=== PATIENT | female | born 1975 | race Caucasian/White ===

== ENCOUNTER 2016-10-10 08:52 | Day surgery (SDC) | payer OTHER ==
[~2016-10-10] VITALS: Ht 165.1 cm; Wt 72.6 kg
[~2016-10-10 08:52] MED LIST: LEXA1TAB PO
[2016-10-10] MEDS ORDERED: LR 1,000 ML IV SCH ×2 (09:15→16:00)
[2016-10-10 09:25] LABS: MEAN CORPUSCULAR HEMOGLOBIN 31.1 pg (27.0-33.0); MEAN CORPUSCULAR HGB CONC 34.5 g/dl (32.0-36.5); MEAN CORPUSCULAR VOLUME 90.2 fl (80.0-96.0); RED CELL DISTRIBUTION WIDTH 11.7 % (11.5-14.5); WHITE BLOOD COUNT 8.6 K/mm3 (4.0-10.0)
[2016-10-10 10:20] LABS: CONTROL LINE UCG INT CTR LINE PRESENT
[2016-10-10] MEDS ORDERED: PROPOFOL 500 MG/50 ML VIAL As Ordered ONE (13:38)
[2016-10-10] MEDS ORDERED: fentaNYL 100 MCG/2 ML INJECTION (J3010) As Ordered ONE ×3 (13:38→15:26)
[2016-10-10] MEDS ORDERED: GLYCOPYRROLATE INJ 0.2 MG/ML 2 ML VIAL As Ordered ONE ×2 (13:38→14:05)
[2016-10-10] MEDS ORDERED: NEOSTIGMINE 1MG/ML 5 ML SYRINGE (J2710) As Ordered ONE (13:38)
[2016-10-10] MEDS ORDERED: MIDAZOLAM INJ 2 MG/2 ML VIAL (J2250) As Ordered ONE (13:38)
[2016-10-10] MEDS ORDERED: dexameTHASONE 4 MG/ML 1ML VIAL (J1100) As Ordered ONE (13:38)
[2016-10-10] MEDS ORDERED: ROCURONIUM BROMIDE 50 MG/5 ML VIAL As Ordered ONE (13:38)
[2016-10-10] MEDS ORDERED: LIDOCAINE 2% INJ 100 MG/5 ML SDV (FOR ANES.) As Ordered ONE (13:39)
[2016-10-10] MEDS ORDERED: KETOROLAC 60 MG/2 ML VIAL (J1885) As Ordered ONE (13:41)
[2016-10-10] MEDS ORDERED: ONDANSETRON 4MG/2ML VIAL (J2405) As Ordered ONE (13:41)
[2016-10-10] MEDS ORDERED: ePHEDrine SULFATE 25 MG/5 ML(5MG/ML) SYRINGE As Ordered ONE (14:01)
[2016-10-10] MEDS ORDERED: PROPOFOL 200 MG/20 ML VIAL As Ordered ONE (14:50)
[2016-10-10] MEDS: fentaNYL 100 MCG/2 ML INJECTION (J3010) IV PRN ×4 (15:30→15:45)
[2016-10-10] MEDS ORDERED: MORPHINE PCA 1MG/ML 100ML CADD As Ordered ONE (15:31)
[2016-10-10] MEDS ORDERED: HYDROmorphone HCL 1 MG/ML SYRINGE (J1170) As Ordered ONE (15:57)
[2016-10-10] MEDS: HYDROmorphone HCL 1 MG/ML SYRINGE (J1170) IV PRN ×3 (16:00→16:20)
[2016-10-10] MEDS ORDERED: diphenhydrAMINE INJ 50MG/ML VIAL (J1200) IV PRN (16:00)
[2016-10-10] MEDS ORDERED: MORPHINE PCA 1MG/ML 100ML CADD IV PRN (16:00)
[2016-10-10] MEDS ORDERED: PERCOCET 5MG/325MG TAB PO PRN (16:00)
[2016-10-10] MEDS ORDERED: EPIDURAL/PCA KEYS XX PRN (16:00)
[2016-10-10] MEDS ORDERED: NALOXONE INJ 0.4 MG/1 ML VIAL (J2310) IV PRN (16:00)
[2016-10-10] MEDS ORDERED: ONDANSETRON 4MG/2ML VIAL (J2405) IV PRN (16:00)
[2016-10-10] MEDS ORDERED: NALBUPHINE HCL 10 MG/ML AMP (J2300) IV PRN (16:00)
[2016-10-10] MEDS: LR 1,000 ML IV SCH ×2 (16:15→21:24)
[2016-10-10 16:35] VITALS: BP 127/62
[2016-10-10 17:00] VITALS: BP 142/63
[2016-10-10 18:00] VITALS: BP 130/86
[2016-10-10 19:00] VITALS: BP 130/76
[2016-10-10 20:00] VITALS: BP 127/66
[2016-10-10 21:00] VITALS: BP 129/74
[2016-10-10] MEDS ORDERED: IBUPROFEN 600 MG TAB PO PRN (22:00)
[2016-10-11] VITALS: BP 127/58
[2016-10-11 04:00] VITALS: BP 115/72
[2016-10-11] MEDS ORDERED: NORCO, ANEXSIA 5/325MG TABLET (HYDROcodone/ACETAMINOPHEN) PO PRN (06:00)
[2016-10-11 07:25] LABS: MEAN CORPUSCULAR HEMOGLOBIN 30.2 pg (27.0-33.0); MEAN CORPUSCULAR HGB CONC 32.8 g/dl (32.0-36.5); RED CELL DISTRIBUTION WIDTH 12.6 % (11.5-14.5); WHITE BLOOD COUNT 13.6 K/mm3 (4.0-10.0)
[2016-10-11 08:00] VITALS: BP 144/69
--- NOTE | 2016-10-11 08:36 | RO ---
DATE OF PROCEDURE: 10/10/2016 PREOPERATIVE DIAGNOSIS: Bleeding and pain, desire for removal of intrauterine device (IUD). POSTOPERATIVE DIAGNOSIS: Bleeding and pain, desire for removal of intrauterine device (IUD). PROCEDURE: Total vaginal hysterectomy with bilateral salpingectomy and removal of IUD. SURGEON: Dr. Carmelita Rosales [employer] COUNTER FEEDER: Latia Kwong ANESTHESIA: General endotracheal anesthesia. BRIEF DESCRIPTION OF PROCEDURE AND FINDINGS: Gabby was brought to the operating room where sufficient general endotracheal anesthesia was induced and she was prepped, draped and positioned in the usual sterile fashion with the weight speculum placed, the bladder emptied, and the anterior and posterior aspects of the cervix grasped with single tooth tenacula. Circumferential incision was made around the base of the cervix. In fact, the IUD was removed after the single tooth tenacula were placed and then a circumferential incision was made around the base of the cervix after the IUD and string had been removed out of the way. The cardinal ligaments were isolated, clamped, transected, and ligated with #0 Vicryl suture, which was used throughout the case. The uterosacrals were then isolated, clamped, transected and ligated and labeled for later reattachment. The peritoneal reflection posteriorly opened. The dissection was then continued anteriorly to free up the bladder flap and the uterine vasculature was carefully clamped, transected and ligated in sequential fashion along the lateral aspect of the uterus until the level of the utero-ovarian ligaments was reached. This too was clamped, transected and ligated, as were the round ligaments. Then the fallopian tubes were carefully brought down and the pedicles carefully clamped, transected and ligated and the uterus with the attached fallopian tubes was removed. Both left and right fallopian tubes were removed. The patient retains her ovaries as was her wish. The pedicles were carefully evaluated with sponge on a stick and retractors and good hemostasis was confirmed. Angle stitches of #0 Vicryl were placed. The uterosacrals were reincorporated into the cuff and the cuff closed with a #0 Vicryl in a running locked stitch with good approximation and hemostasis and support achieved. The procedure was then ended. Estimated blood loss for the procedure was about 50 mL. Fluid replacement was crystalloid. Complications: None. Condition and Disposition: Gabby tolerated the procedure well and was recovering in the recovery room in good condition.
[2016-10-11] MEDS ORDERED: NORC5TAB PO (08:49)
[2016-10-11] MEDS ORDERED: MOTR200T44 PO (08:49)
[2016-10-11] MEDS ORDERED: ESCITALOPRAM OXALATE 10 MG TAB (LEXAPRO) PO SCH (09:00)
== END 2016-10-11 09:05 | disposition home or self-care (01) ==
LOC: M SDC 08:52 → M PED 16:38 → M SDC 10-11 09:05
PROVIDERS: ATTEND Obstetrics & Gynecology
DX: N92.0 Excessive and frequent menstruation with regular cycle (principal); F41.9 Anxiety disorder, unspecified; F32.9 Major depressive disorder, single episode, unspecified; F17.290 Nicotine dependence, other tobacco product, uncomplicated; Z79.899 Other long term (current) drug therapy
CPT/HCPCS: 36415; 58262; 84703; 85027; 86850; 86900; 86901; 88309; 96374; 96375; J0690; J1100; J1170; J1885; J2250; J2405; J2710; J3010

== ENCOUNTER → 2019-03-19 | Outpatient (CLI) | payer OTHER ==
[~2019-03-19] MED LIST changes: +MOTR200T44 PO; +NORC1TAB7 PO; +PROHANCE 279.3MG/ML 15ML VIAL (A9576) As Ordered ONE
--- NOTE | 2019-03-19 12:29 | REP ---
Bilateral breast MRI study without and with IV gadolinium: History: Dense tissue on mammography. High-risk patient breast cancer screening study. No comparison imaging available. Technique: 3 Roselia MRI imaging was performed with a dedicated breast coil. Axial, coronal, and sagittal T1 and T2-weighted scans were obtained with and without fat saturation in the usual fashion. The study includes dynamically acquired post gadolinium enhanced imaging subtraction imaging. Maximal intensity projection and multiplanar re-formation imaging is included as well. The study was interpreted with the aid of Melon #usemelon, an FDA approved computer-aided detection (CAD) software program, on a dedicated breast MRI work station. The gadolinium enhancement dose is 15 mL of intravenous ProHance. Findings: There are extensive fibroglandular elements bilaterally and symmetrically throughout the breast parenchyma. There is no evidence of axillary lymphadenopathy on either side. No significant breast cystic changes are noted. High-resolution pre and postcontrast enhanced MR images show no suspicious morphologic abnormality on either side. Dynamically acquired sequential post gadolinium enhanced images show no suspicious focus of enhancement and/or washout to suggest malignancy. Subtraction images are unremarkable. There is a mild pattern of background parenchymal enhancement. Impression: BI-RADS category 1 negative breast MRI findings. Patient's whose breast cancer lifetime risk assessment is greater than 20% merit enhanced screening with annual screening MRI study, preferably alternating every 6 months with annual screening mammography. Electronically Signed by Man Craft MD 03/19/2019 01:07 P
== END ==
LOC: M RAD 08:32
PROVIDERS: ATTEND Physician Assistant
DX: Z12.31 Encounter for screening mammogram for malignant neoplasm of breast (principal); Z80.3 Family history of malignant neoplasm of breast
CPT/HCPCS: A9576; C8908

== ENCOUNTER → 2019-07-30 | Outpatient (CLI) | payer OTHER ==
[~2019-07-30] MED LIST changes: -PROHANCE 279.3MG/ML 15ML VIAL (A9576) As Ordered ONE
--- NOTE | 2019-07-30 13:51 | REP ---
MRI RIGHT FOOT WITHOUT CONTRAST: HISTORY: Cuboid syndrome. Peroneal tendonitis right lower extremity. TECHNIQUE: Axial, coronal and sagittal imaging planes utilized. T1- and T2-weighted scans were obtained in the usual fashion with and without fat saturation. 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 There is hyperintensity of the overlying articular cartilage. There is mild reactive spurring suggesting chronicity. No evidence of loose body or significant joint effusion is seen. There is a small zone of marrow edema at the plantar insertion site on the inferior posterior calcaneus. Plantar fascia are smooth. Findings may reflect mild plantar fasciitis. Cortical and medullary bone signal intensity are otherwise normal in the tarsal, metatarsal, and phalangeal bones. Cuboid bone is unremarkable. No evidence of tarsal coalition is seen. Achilles tendon is unremarkable as seen. No ankle ligament disruption is appreciated. No evidence of peroneal or other flexor tendon disruption. No juxta-articular cyst or mass is seen. IMPRESSION: 1. There is evidence of mild plantar fasciitis. 2. 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 Electronically Signed by Man Craft MD 07/30/2019 01:57 P
== END ==
LOC: M PLARAD 10:19
PROVIDERS: ATTEND Orthopaedic Surgery
DX: M89.9 Disorder of bone, unspecified (principal); S93.31 Subluxation and dislocation of tarsal joint; M76.71 Peroneal tendinitis, right leg

== ENCOUNTER → 2020-11-09 | Outpatient (REF) | payer OTHER | LOC: M LAB REF 15:21 | PROVIDERS: ATTEND Physician Assistant | DX: D23.39 Other benign neoplasm of skin of other parts of face (principal) ==

== ENCOUNTER → 2023-01-20 | Outpatient (CLI) | payer OTHER | LOC: M WHC 08:20 | PROVIDERS: ATTEND Family Medicine | DX: Z12.31 Encounter for screening mammogram for malignant neoplasm of breast (principal) ==

== ENCOUNTER 2023-03-13 07:51 | Day surgery (SDC) | payer OTHER ==
[~2023-03-13] VITALS: Ht 165.1 cm; Wt 76.6 kg
[~2023-03-13 07:51] MED LIST changes: +ALPR0.25 PO; +FLUO20CA22 PO; +FLUO40CA PO; +NS 1,000 ML IV ONE
[2023-03-13 09:05] VITALS: TEMP 98.4
[2023-03-13] MEDS ORDERED: propofoL 500 MG/50 ML VIAL As Ordered ONE (09:12)
[2023-03-13] MEDS ORDERED: LIDOCAINE 2% 100MG/5ML SDV (FOR ANES.) As Ordered ONE (09:12)
[2023-03-13 09:19] VITALS: BP 107/66; O2SAT 100
== END 2023-03-13 09:21 | disposition home or self-care (01) ==
LOC: M OPP 07:51
PROVIDERS: ATTEND Surgery
DX: Z12.11 Encounter for screening for malignant neoplasm of colon (principal); F17.200 Nicotine dependence, unspecified, uncomplicated; Z79.1 Long term (current) use of non-steroidal anti-inflammatories (NSAID); Z79.899 Other long term (current) drug therapy

== ENCOUNTER → 2023-10-10 | Outpatient (CLI) | payer OTHER ==
[~2023-10-10] MED LIST changes: -NS 1,000 ML IV ONE; +PROHANCE 279.3MG/ML 15ML VIAL ONE
== END ==
LOC: M PLAIMG 12:59
PROVIDERS: ATTEND Physician Assistant
DX: Z12.39 Encounter for other screening for malignant neoplasm of breast (principal); Z80.3 Family history of malignant neoplasm of breast
CPT/HCPCS: A9576; C8908

== ENCOUNTER → 2024-10-08 | Outpatient (CLI) | payer OTHER ==
[~2024-10-08] MED LIST changes: +FLUO-365 PO; -FLUO20CA22 PO; -PROHANCE 279.3MG/ML 15ML VIAL ONE
== END ==
LOC: M WHC 12:45
PROVIDERS: ATTEND Family Medicine
DX: Z12.31 Encounter for screening mammogram for malignant neoplasm of breast (principal)